=== PATIENT | female | born 1935 | race Caucasian/White ===

== ENCOUNTER 2018-10-18 08:14 | Emergency (ER) | payer MEDICARE ==
[2018-10-18 09:04] LABS: #Basophils 0.1 thou/uL (0.0-0.2); #Eosinphils 0.1 thou/uL (0.0-0.7); #Lymphocytes 1.4 thou/uL (1.20-3.40); #Monocytes 0.5 thou/uL (0.11-0.59); #Neutrophils 5.7 thou/uL (1.40-6.50); %Basophils 0.8 % (0.0-1.0); %Eosinophils 1.7 % (0.0-10.0); %Lymphocytes 18.1 % (21.0-51.0); %Neutrophils 73.4 % (42.0-75.0); Hemoglobin 11.7 g/dL (12.0-16.0); Mean Corpuscular Hemoglobin 32.4 pg (27.0-31.0); Mean Platelet Volume 7.8 fL (7.4-10.4); Platelet Count 196 thou/uL (130-400); RBC Distribution Width 14.5 % (11.5-14.5); Red Blood Cell (RBC) Count 3.63 mill/uL (4.20-5.40); White Blood Cell (WBC) Count 7.7 thou/uL (4.8-10.8)
[2018-10-18 09:18] LABS: ALT (SGPT) 89 U/L (8-55); AST (SGOT) 63 U/L (5-34); Albumin 3.9 g/dL (3.4-4.8); Alkaline Phosphatase 104 U/L (40-150); Anion Gap 15 mmol/L (10-20); BUN (Urea Nitrogen) 43 mg/dL (9.8-20.1); Bilirubin, Total 0.6 mg/dL (0.2-1.2); Calc. Creatinine Clearance 0 mL/min (70-130); Calcium 9.8 mg/dL (7.8-10.44); Carbon Dioxide 25 mmol/L (23-31); Chloride 102 mmol/L (98-107); Estimated GFR-MDRD 31; Globulin 3.1 g/dL (2.4-3.5); Glucose 119 mg/dL (83-110); Potassium 4.4 mmol/L (3.5-5.1); Sodium 138 mmol/L (136-145)
[2018-10-18] MEDS ORDERED: Aspirin Chewable 81 MG TAB ONE (09:28)
[2018-10-18] MEDS ORDERED: Enoxaparin Sodium 100 MG/ML SYRINGE ONE (09:28)
[2018-10-18] MEDS ORDERED: Furosemide 40 MG/4 ML VIAL ONE (09:28)
[2018-10-18] MEDS ORDERED: Azithromycin 250 MG TAB ONE (09:57)
[2018-10-18] MEDS ORDERED: cefTRIAXone\\ROCEPHIN 1 GM VIAL ONE (09:57)
[2018-10-18] MEDS ORDERED: Acetaminophen 500 MG TAB ONE (10:28)
--- NOTE | 2018-10-18 10:45 | RAD ---
PORTABLE CHEST: DATE: 10/18/2018. FINDINGS: An AP portable film at 0813 is presented. No prior films available for comparison. The heart is upper normal in size. The patient is turned quite a bit to the side, but there are area s of increased density in each lung base that are either infiltrate or scarring. A small amount of p leural fluid may be present as well. While the vasculature of the right chest is more prominent mariano n the left, this is probably due to the patient being turned. I would wonder about the possibility o f pneumonia given increased density in each lung base. I am as of yet undecided about vascular conge stion given the position of the film. Some degenerative changes are seen in the right glenohumeral j oint. There may be a slight subluxation of the left humeral head. I suspect it is longstanding. IMPRESSION: 1. Bibasilar increase in density and probable fluid. Scarring versus acute infiltrate. I cannot ru le out pneumonia at this point. 2. Slight increase in the vasculature, but the patient being turned, I am not yet comfortable callin g congestive failure. Serial followup films may be helpful. POS: HOME
[2018-10-18] MEDS ORDERED: Diazepam 5 MG TAB ONE (10:57)
[2018-10-18 12:48] LABS: CKMB 5.2 ng/mL (0-6.6)
[2018-10-18] MEDS ORDERED: Ketorolac Tromethamine 30 MG/ML VIAL ONE (13:51)
== END 2018-10-18 14:42 | disposition home or self-care (01) ==
LOC: BURERS 08:14
DX: I48.91 Unspecified atrial fibrillation (principal); J44.9 Chronic obstructive pulmonary disease, unspecified; I10 Essential (primary) hypertension; E78.00 Pure hypercholesterolemia, unspecified; F17.210 Nicotine dependence, cigarettes, uncomplicated; Z79.899 Other long term (current) drug therapy; Z79.51 Long term (current) use of inhaled steroids
CPT/HCPCS: 71045; 80053; 82553; 83880; 84484; 85025; 87804; 93005; 96365; 96366; 96372; 96375; 96376; J0696; J1650; J1885; J1940